=== PATIENT | male | born 1965 | race Caucasian/White ===

== ENCOUNTER 2019-02-27 11:41 | Emergency (ER) | payer SELFPAY ==
--- NOTE | 2019-02-27 12:10 | EDM.PDOC ---
ED HPI GENERAL MEDICAL PROBLEM - General Chief Complaint: Genitourinary Problem Stated Complaint: BLOOD IN URINE Time Seen by Provider: 02/27/19 11:56 Source of Information: Reports: Patient History Limitations: Reports: No Limitations - History of Present Illness INITIAL COMMENTS - FREE TEXT/NARRATIVE: Mr. Medina is a very pleasant 53-year-old man who states that he developed dysuria , urinary urgency, and urinary frequency yesterday, 02/27/2019. He then developed gross hematuria about one hour [employer] (around 11:00). He denies having any associated abdominal/suprapubic pain, lower back pain, or flank pain. No recent fever. He did, however, feel hot and shiverry in the middle of the night. No recent nausea, vomiting, constipation, or diarrhea. No recent weight change. No prior similar symptoms. The patient states that he took ibuprofen this morning. The patient's PCP is at the [facility] in [place]. Penis Pain Score (Numeric/FACES): 6 - Related Data Allergies Allergy/AdvReac Type Severity Reaction Status Date / Time No Known Allergies Allergy Verified 02/27/19 11:56 Home Meds: Home Meds Cholecalciferol (Vitamin D3) [Vitamin D] 5,000 units PO DAILY 02/27/19 [History] Nitrofurantoin Monohyd/M-Cryst [Macrobid 100 mg Capsule] 1 cap PO Q12H #13 capsule 02/27/19 [Rx] amLODIPine [Norvasc] 5 mg PO DAILY 02/27/19 [History] Past Medical History Cardiovascular History: Reports: Hypertension Gastrointestinal History: Reports: GERD, Hiatal Hernia Musculoskeletal History: Reports: Arthritis - Past Surgical History HEENT Surgical History: Reports: Oral Surgery (wisdom teeth extraction) GI Surgical History: Reports: Hernia, Inguinal (bilateral), [place] Fundoplication Neurological Surgical History: Reports: Other (See Below) (Right hand nerve surgery) Social & Family History - Tobacco Use Smoking Status *Q: Current Every Day Smoker Years of Tobacco use: 22 Packs/Tins Daily: 0.3 Packs/Tins Daily Comment: Down from 1 ppd - Alcohol Use Alcohol Use History: Yes Alcohol Use Frequency: Socially (occasionally to excess) - Recreational Drug Use Recreational Drug Use: No - Living Situation & Occupation Living situation: Reports: , with Spouse, with Family (1 child) Occupation: Employed (recycle driver) ED ROS GENERAL - Review of Systems Review Of Systems: ROS reveals no pertinent complaints other than HPI. ED EXAM, RENAL/ - Physical Exam Exam: See Below Exam Limited By: No Limitations General Appearance: Alert, WD/WN, No Apparent Distress Eye Exam: Bilateral Eye: EOMI, Normal Inspection Ears: Normal External Exam, Hearing Grossly Normal Nose: Normal Inspection Throat/Mouth: Normal Inspection, Normal Lips, Normal Voice, No Airway Compromise Head: Atraumatic, Normocephalic Neck: Normal Inspection, Full Range of Motion Respiratory/Chest: No Respiratory Distress, Lungs Clear, Normal Breath Sounds, No Accessory Muscle Use Cardiovascular: Normal Peripheral Pulses, Regular Rate, Rhythm, No Gallop, No JVD, No Murmur, No Rub GI/Abdominal: Normal Bowel Sounds, Soft, Non-Tender (including suprapubically), No Organomegaly, No Distention, No Abnormal Bruit, No Mass (Male) Exam: Deferred Rectal (Males) Exam: Deferred Back Exam: Normal Inspection, Full Range of Motion. No: CVA Tenderness (L), CVA Tenderness (R) Extremities: Normal Inspection, Normal Range of Motion, No Pedal Edema, Normal Capillary Refill Neurological: Alert, Oriented, Normal Cognition, No Motor/Sensory Deficits Psychiatric: Normal Affect Skin Exam: Warm, Dry, Intact, Normal Color, No Rash Course - Vital Signs Last Recorded V/S: Last Vital Signs Temp 36.8 C 02/27/19 11:53 Pulse 91 02/27/19 11:53 Resp 18 02/27/19 11:53 BP 137/92 H 02/27/19 11:53 Pulse Ox 95 02/27/19 11:53 - Orders/Labs/Meds Labs: Laboratory Tests 02/27/19 Range/Units 12:35 Urine Color Dark yellow (Yellow) Urine Appearance Cloudy H (Clear) Urine pH 5.5 (5.0-8.0) Ur Specific Bison 1.025 (1.005-1.030) Urine Protein 3+ H (Negative) Urine Glucose (UA) Negative (Negative) Urine Ketones 1+ H (Negative) Urine Occult Blood 3+ H (Negative) Urine Nitrite Negative (Negative) Urine Bilirubin 1+ H (Negative) Urine Urobilinogen 1.0 (0.2-1.0) Ur Leukocyte Esterase 2+ H (Negative) Urine RBC Too numerous to cnt H (0-5) /hpf Urine WBC Too numerous to cnt H (0-5) /hpf Ur Epithelial Cells 5-10 H (0-5) /hpf Urine Bacteria Many H (FEW) /hpf Urine Mucus Many H (FEW) /hpf Meds: Medications Discontinued Medications Generic Name Dose Route Start Last Admin Trade Name Harjit PRN Reason Stop Dose Admin Nitrofurantoin Macrocrystals 100 mg 02/27/19 13:39 Macrobid PO 02/27/19 13:40 ONETIME STA - Re-Assessments/Exams Free Text/Narrative Re-Assessment/Exam: 02/27/19 12:10 The patient's history is most consistent with a UTI. His physical exam is completely benign. I have ordered a urinalysis by clean catch. 02/27/19 13:40 The patient's urinalysis is cloudy in appearance, with 3+ occult blood with too numerous to count RBCs, 2+ leukocyte esterase with too numerous to count WBCs, and nitrate negative with many bacteria and 5-10 epithelial cells. This is consistent with a UTI. I have ordered a urine culture, and will start the patient on nitrofurantoin. I will prescribe a 7-day course. Departure - Departure Time of Disposition: 13:50 Disposition: Home, Self-Care 01 Condition: Good Clinical Impression: UTI (urinary tract infection) - Discharge Information *PRESCRIPTION DRUG MONITORING PROGRAM REVIEWED*: Not Applicable *COPY OF PRESCRIPTION DRUG MONITORING REPORT IN PATIENT ERICH: Not Applicable Prescriptions: Nitrofurantoin Monohyd/M-Cryst [Macrobid 100 mg Capsule] 1 cap PO Q12H #13 capsule Instructions: Urinary Tract Infection, Adult Referrals: PCP,Not In Area [Primary Care Provider] - Forms: ED Department Discharge Additional Instructions: You were seen in the emergency room for painful urination with the need to urinate often, along with visible blood in your urine. Workup in the ER included a urinalysis, which confirmed that you have a urinary tract infection. You have started on the antibiotic nitrofurantoin (Macrobid). A prescription for nitrofurantoin has been sent to the [facility], located [place] [address] from [facility]. Take one tablet of nitrofurantoin every 12 hours, starting tomorrow morning, 02/28/2019, as prescribed. Finish the entire prescription unless told otherwise by a doctor. In addition to nitrofurantoin, you may also take [id number] Azo. As discussed, you should limit the dosage to 6 tablets total - either 3 tablets a day for 2 days, or 2 tablets a day for 3 days - your choice. Azo will turn your urine orange - this is normal. It is essential that you stay adequately hydrated, but it does not really matter what type of fluid you drink. Follow-up with the [facility] on 03/02/2019, to have them check on your urine culture results, to make sure that you are on the correct antibiotic. If you get another urinary tract infection, you should be evaluated by a Urologist to see why you are getting them. If any other problems, please do not hesitate to return to the ER.
[2019-02-27] MEDS ORDERED: Nitrofurantoin Monohydrate/Macrocrystalline 100 MG Cap PO STA (13:39)
== END 2019-02-27 14:00 | disposition home or self-care (01) ==
LOC: JD.ED 11:41
DX: N39.0 Urinary tract infection, site not specified (principal); I10 Essential (primary) hypertension; F17.210 Nicotine dependence, cigarettes, uncomplicated; Z98.890 Other specified postprocedural states
CPT/HCPCS: 81001; 87086; 87088; 87186; 99283